=== PATIENT | female | born 1940 | race African-American/Black ===

== ENCOUNTER → 2016-10-16 | Outpatient (CLI) | payer OTHER ==
[~2016-10-16] MED LIST: ASPIRIN81 M1 PO; COREG6.25 MG PO; COUMADIN3 MG PO; COUMADIN7.5 MG PO; LANTUS100 U/ML SUBQ; LISINOPRIL-HCTZ1 T15 PO; LISINOPRIL-HCTZ1 T19 PO; METFORMIN HCL500 M1 PO; PROTONIX PO; TAZTIA XT120 MG PO; TIAZAC180 MG PO
--- NOTE | ~2016-10-16 | BD1 ---
[facility] A Service of [facility] & [facility] RADIOLOGY TEXT RESULTS PATIENT: TANVIR VINSON LOCATION: [facility] : 38 UNIT #: [id number] AGE: [address]: CHAMP LOAIZA MD SEX: F ORDER DR: [id number] [place] [id number] O MR#: [id number] Acc #: [id number] NAME: TANVIR VINSON : 1940 SEX: F STUDY DATE/TIME: 10/16/2016 9:15 UNIT: SRAD ROOM: STUDY DESCRIPTION: Dexa Bone Dens 1+ Site Attending Physician: Champ Loaiza M.D. Referring Physician: Champ Loaiza M.D. Ordering Physician: Physician Non-Staff Primary Care Physician: Champ Loaiza M.D. MEDICAL IMAGING REPORT This report is preliminary unless electronic signature is present. EXAM Bone density spine. HISTORY Screening, post menopausal. FINDINGS Bone density scanning performed upper four lumbar vertebral segments and both proximal femurs in [age]-year-old 89 pound -[place] female. Most recent comparison 10/27/2012. L1-L4: Total bone mineral density 1.324 grams per square centimeter for T-score 1.2 standard deviations above mean for reference population normal young individuals and Z-score 1.6 standard deviations above mean for age matched population. Compared to October 2012, there has been a statistically significant 5.2% decrease in bone mineral density in this region. Proximal left femur: Total bone mineral density 1.163 grams per square centimeter for T-score 1.2 standard deviations above mean for reference population of normal young individuals and Z-score 1.4 standard deviations above mean for age matched population. Left femoral neck bone mineral density 1.165 grams per square centimeter for T-score 0.9 standard deviations above the mean for reference population of normal young individuals and Z-score 1.4 standard deviations above the mean for age matched population. Using total bone mineral density as trending value, there has been a 3.1% statistically significant increase in bone mineral density in this region compared to 10/27/2012. Proximal right femur total bone mineral density 1.175 grams per square centimeter for T-score 1.3 standard deviations above for reference population of normal young individuals and Z-score 1.5 standard deviations above the mean for age matched population. In the right femoral neck bone STS. [facility] [facility] A Service of [facility] & [facility] RADIOLOGY TEXT RESULTS PATIENT: TANVIR VINSON LOCATION: [facility] : 38 UNIT #: [id number] AGE: [address]: CHAMP LOAIZA MD SEX: F ORDER DR: mineral density is 1.212 grams per square centimeter for T-score 1.3 standard deviations above the mean for reference population normal young individuals and Z-score 1.7 standard deviations above the mean for age matched population. Using total bone mineral density as trending value in this region, there has been a 0.8% decrease in bone mineral density proximal right femur compared to 10/27/2012. IMPRESSION Normal bone mineral density in the upper four lumbar vertebral segments overall and bilateral proximal femurs. Please see trending data in body of report above. Continue surveillance is recommended. Dictated by... Willard Pereira M.D. THIS IS AN ELECTRONICALLY VERIFIED REPORT Willard Pereira M.D. at 10/18/2016 8:25 AM [place] TD: 10/17/2016 09:20 JOB #: [id number] MEDICAL IMAGING REPORT Page 1 of 1
== END | disposition home or self-care (01) ==
LOC: SRAD 08:54
DX: Z13.820 Encounter for screening for osteoporosis (principal); N95.9 Unspecified menopausal and perimenopausal disorder; Z78.0 Asymptomatic menopausal state
CPT/HCPCS: 77080